=== PATIENT | female | born 1960 | race Caucasian/White ===

== ENCOUNTER → 2018-07-27 13:24 | Outpatient (CLI) | payer BC | END | disposition home or self-care (01) | LOC: D.MRI 13:24 | DX: M25.561 Pain in right knee (principal); M25.562 Pain in left knee ==

== ENCOUNTER 2019-09-05 08:00 | Outpatient (CLI) | payer BC | END 2019-09-05 23:59 | disposition home or self-care (01) | LOC: D.MAMMO 08:00 | PROVIDERS: ATTEND Nurse Practitioner Family | DX: Z12.31 Encounter for screening mammogram for malignant neoplasm of breast (principal) ==

== ENCOUNTER 2021-04-16 14:45 | Outpatient (CLI) | payer BC | END 2021-04-16 23:59 | disposition home or self-care (01) | LOC: D.MAMMO 14:45 | PROVIDERS: ATTEND Nurse Practitioner Family | DX: Z12.31 Encounter for screening mammogram for malignant neoplasm of breast (principal) ==